=== PATIENT | female | born 1965 ===

== ENCOUNTER 2017-06-17 01:35 | Emergency (ER) | payer MEDICAID ==
[2017-06-17 01:42] VITALS: RESP 18
[2017-06-17] MEDS ORDERED: DiphenhydrAMINE 50 mg/ml Inj IVP STA (02:20)
[2017-06-17] MEDS ORDERED: DiphenhydrAMINE 50 mg/ml Inj ONE (02:26)
[2017-06-17 02:57] LABS: BASO % 0.2 % (0.0-2.0); EOS % 0.1 % (0.0-4.0); HEMOGLOBIN 13.3 g/dL (12.0-16.0); LYMPH # 1.3 K/uL (1.0-4.3); LYMPH % 21.3 % (20.0-40.0); MEAN CELL VOLUME 86.7 fl (81.0-99.0); MEAN CORPUSCULAR HEMOGLOBIN 29.6 pg (27.0-31.0); MEAN CORPUSCULAR HGB CONC 34.1 g/dL (33.0-37.0); MEAN PLATELET VOLUME 9.9 fl (7.2-11.7); MONO # 0.4 K/uL (0.0-0.8); MONO % 6.2 % (0.0-10.0); NEUT # 4.3 K/uL (1.8-7.0); NEUT % 72.2 % (50.0-75.0); NRBC % 0.1 % (0.0-0.0); RBC 4.48 Mil/uL (3.80-5.20)
[2017-06-17 03:04] LABS: BLOOD UREA NITROGEN 19 mg/dl (7-17); CALCIUM 9.9 mg/dL (8.4-10.2); GFR AFRICAN-AMERICAN > 60; GFR NON-AFRICAN AMERICAN > 60
[2017-06-17] MEDS ORDERED: Iohexol 300 100 ML IJ ONE (03:05)
[2017-06-17] MEDS ORDERED: Sodium Chloride 0.9% 100 ML ONE (03:05)
--- NOTE | 2017-06-17 04:09 | ED PDOC ---
"HPI: General Adult Time Seen by Provider: 06/17/17 01:56 Chief Complaint (Nursing): ENT Problem History Per: Patient History/Exam Limitations: no limitations Onset/Duration Of Symptoms: Hrs Current Symptoms Are (Timing): Still Present Additional Complaint(s): Hx of HTN presenting with L facial swelling, started around 12:30AM, states she took tramadol around 10PM. Denies nausea, vomiting, fevers, chills, rash. Of note, chart review shows that patient has had visits to ENT for parotid swelling. Past Medical History Reviewed: Historical Data, Nursing Documentation, Vital Signs Vital Signs: Last Vital Signs Temp 98.1 F 06/17/17 01:37 Pulse 103 H 06/17/17 01:37 Resp 18 06/17/17 01:37 BP 131/86 06/17/17 01:37 Pulse Ox 97 06/17/17 04:13 - Medical History PMH: Asthma, Back Problems (pinched nerves x5 and a herniated disc (2010)), Depression, HTN, Hypothyroidism - Family History Family History: States: [place] (mother had heart attack at 80 y/o) - Immunization History Hx Tetanus Toxoid Vaccination: No Hx Influenza Vaccination: Yes Hx Pneumococcal Vaccination: Yes - Home Medications Home Medications: Ambulatory Orders Medication Instructions Recorded Silver Sulfadiazine [Silvadene] 1 cre TP BID #0 cre 12/09/12 Tramadol Hydrochloride [Tramadol] 50 mg PO Q6 PRN #20 tab 12/09/12 Clindamycin [Cleocin] 300 mg PO Q6 #28 cap 11/23/13 Dicyclomine [Bentyl] 20 mg PO Q6 PRN #20 tab 12/03/13 Cyclobenzaprine [Cyclobenzaprine 10 mg PO BID #14 tab 03/06/15 HCl] Ibuprofen [Motrin] 400 mg PO Q6 #30 tab 03/06/15 Ondansetron ODT [Zofran ODT] 4 mg PO Q8 PRN #12 odt 05/18/15 Albuterol 0.5% [Albuterol 0.5% 3 ml IH Q4H PRN #50 neb 01/31/16 Inhal Monique (2.5 mg/0.5 ml) UD] Albuterol HFA [Ventolin HFA 90 2 puff IH Q4H PRN #1 inh 01/31/16 mcg/actuation (8 g)] Azithromycin [Zithromax] 250 mg PO DAILY #6 dose 01/31/16 Prednisone 50 mg PO DAILY #4 tablet 01/31/16 Acetaminophen [Acetaminophen Extra 2 tab PO Q6 PRN #24 tablet 02/14/16 Strength] Famotidine [Pepcid] 20 mg PO BID #10 tab 02/14/16 Ondansetron [Zofran Odt] 4 mg PO Q8 PRN #2 odt 02/14/16 - Allergies Allergies/Adverse Reactions: Allergies Allergy/AdvReac Type Severity Reaction Status Date / Time cashew nut Allergy URTICARIA Verified 06/17/17 03:22 Penicillins Allergy SWELLING Verified 01/30/17 11:41 Review of Systems ROS Statement: Except As Marked, All Systems Reviewed And Found Negative ENT: Positive for: Other (Facial swelling) Physical Exam - Reviewed Nursing Documentation Reviewed: Yes Vital Signs Reviewed: Yes - Physical Exam Appears: Positive for: Well, Non-toxic, No Acute Distress Head Exam: Positive for: ATRAUMATIC, NORMAL INSPECTION, NORMOCEPHALIC Skin: Positive for: Normal Color, Warm, DRY Eye Exam: Positive for: EOMI, Normal appearance, PERRL ENT: Positive for: Normal ENT Inspection, Other (Facial swelling near parotid on L, no redness/fluctuance/induration) Neck: Positive for: Normal, Painless ROM Cardiovascular/Chest: Positive for: Regular Rate, Rhythm Respiratory: Positive for: CNT, Normal Breath Sounds Gastrointestinal/Abdominal: Positive for: Normal Exam, Soft Back: Positive for: Normal Inspection Extremity: Positive for: Normal ROM Neurologic/Psych: Positive for: Alert, Oriented - Laboratory Results Result Diagrams: 06/17/17 02:44 06/17/17 02:44 - ECG O2 Sat by Pulse Oximetry: 97 Pulse Ox Interpretation: Normal Medical Decision Making Medical Decision MakinAM Hx of HTN, CAD, parotid swelling in the past presenting with facial swelling -likely recurrence of parotid swelling -unlikely abscess/infection, however will get facial CT -re-eval post workup 430AM EXAM: CT Maxillofacial With Intravenous Contrast EXAM DATE/TIME: 06/17/2017 2:19 AM CLINICAL HISTORY: 52 years old, female; Signs and symptoms; Mass, lump, or swelling; Maxilla; Additional info: L sided facial swelling x 1 day TECHNIQUE: Axial computed tomography images of the face with intravenous contrast. All CT scans at this facility use one or more dose reduction techniques, viz.: automated exposure control; ma/ kV adjustment per patient size (including targeted exams where dose is matched to indication; i.e. head); or iterative reconstruction technique. Coronal and sagittal reformatted images were created and reviewed. CONTRAST: 85 mL of [id number] administered intravenously. COMPARISON: No relevant prior studies available. FINDINGS: There is partial opacification of the sinuses, most notably the right ethmoid and right maxillary sinuses. It could be chronic or alternatively represent acute sinusitis. Clinical correlation is recommended. There is suggestion of slight indistinctness of the left parotid gland with haziness of the overlying fat raising the possibility of parotiditis however evaluation is limited due to extensive artifact from adjacent dental fillings. Multiple small submandibular lymph nodes are noted. The auditory canals are clear. Incidentally noted is a dominant right vertebral artery. The vasculature is otherwise unremarkable. JESSE EAGLE KORIN | Final Radiology Report CONFIDENTIALITY STATEMENT This report is intended only for use by the referring physician, and only in accordance with law. If you received this in error, call [phone]. Page 2 of 2 The airway is patent. IMPRESSION: Right-sided sinus disease. Probable infectious/inflammatory process involving the left parotid gland. Thank you for allowing us to participate in the care of your patient. Dictated and Authenticated by: Carolyn Daigle MD 06/17/2017 4:19 AM Eastern Time ([place] & [place]) Unlikely infectious etiology given relatively benign appearance of swelling without erythema or tenderness and no elevated WBC count, will refer to outpatient ENT for further eval given patient has had this before. Unlikely acute in nature, suitable for outpatient followup, no acute intervention needed at this time. Return precautions given. Disposition - Clinical Impression Clinical Impression: Parotid swelling - Patient ED Disposition Is Patient to be Admitted: No - Disposition Referrals: Mark Harvey MD [Staff Provider] - Disposition: Routine/Home Disposition Time: 04:40 Condition: IMPROVED Instructions: Parotitis Forms: [facility] (Mosotho) Print Language: DANISH"
--- NOTE | 2017-06-17 04:19 | CT ---
EXAM: CT Maxillofacial With Intravenous Contrast EXAM DATE/TIME: 06/17/2017 2:19 AM CLINICAL HISTORY: 52 years old, female; Signs and symptoms; Mass, lump, or swelling; Maxilla; Additional info: L sided facial swelling x 1 day TECHNIQUE: Axial computed tomography images of the face with intravenous contrast. All CT scans at this facility use one or more dose reduction techniques, viz.: automated exposure control; ma/kV adjustment per patient size (including targeted exams where dose is matched to indication; i.e. head); or iterative reconstruction technique. Coronal and sagittal reformatted images were created and reviewed. CONTRAST: 85 mL of [id number] administered intravenously. COMPARISON: No relevant prior studies available. FINDINGS: There is partial opacification of the sinuses, most notably the right ethmoid and right maxillary sinuses. It could be chronic or alternatively represent acute sinusitis. Clinical correlation is recommended. There is suggestion of slight indistinctness of the left parotid gland with haziness of the overlying fat raising the possibility of parotiditis however evaluation is limited due to extensive artifact from adjacent dental fillings. Multiple small submandibular lymph nodes are noted. The auditory canals are clear. Incidentally noted is a dominant right vertebral artery. The vasculature is otherwise unremarkable. The airway is patent. IMPRESSION: Right-sided sinus disease. Probable infectious/inflammatory process involving the left parotid gland.
[2017-06-17 04:55] VITALS: BP 122/74; PULSE 67; TEMP 98.3; O2SAT 96
== END 2017-06-17 05:10 | disposition home or self-care (01) ==
LOC: H.ER 01:35
DX: K11.20 Sialoadenitis, unspecified (principal)
CPT/HCPCS: 70488; 80048; 85025; 96374; 96375; 99282; J1200; J1885; Q9967